=== PATIENT | female | born 1980 | race Caucasian/White ===

== ENCOUNTER 2016-10-06 10:23 | Outpatient (CLI) | payer BC ==
[~2016-10-06] VITALS: Ht 170.2 cm; Wt 93.6 kg
[2016-10-06 10:40] VITALS: BP 115/68
[2016-10-06] MEDS ORDERED: ESCI20TA10 PO (11:03)
[2016-10-06] MEDS ORDERED: PNV1TAB.5 PO (11:04)
[2016-10-06] MEDS ORDERED: SENN1TAB7 PO (11:04)
== END 2016-10-06 11:48 | disposition home or self-care (01) ==
LOC: LDOP 10:23
PROVIDERS: ATTEND Obstetrics & Gynecology
DX: O09.523 Supervision of elderly multigravida, third trimester (principal); O42.92 Full-term premature rupture of membranes, unspecified as to length of time between rupture and onset of labor; O99.343 Other mental disorders complicating pregnancy, third trimester; O99.513 Diseases of the respiratory system complicating pregnancy, third trimester; O46.93 Antepartum hemorrhage, unspecified, third trimester; F32.9 Major depressive disorder, single episode, unspecified; J45.909 Unspecified asthma, uncomplicated; Z3A.38 38 weeks gestation of pregnancy
CPT/HCPCS: 59025; 81001; 87086; 89060; 99201; G0463; Q0114

== ENCOUNTER 2016-10-13 07:11 | Inpatient (IN) | payer BC ==
[~2016-10-13] VITALS: Ht 170.2 cm; Wt 94.5 kg
[~2016-10-13 07:11] MED LIST: ESCI20TA10 PO; PNV1TAB.5 PO; SENN1TAB7 PO
[2016-10-13] MEDS ORDERED: OXYTOCIN 30U/ 0.9% NaCL 500ML 500 ML IV SCH (07:14)
[2016-10-13] MEDS ORDERED: LACTATED RINGERS 1,000 ML IV SCH ×2 (07:14→07:20)
[2016-10-13] MEDS ORDERED: METOCLOPRAMIDE 5 MG/ML, 2ML ONE ×2 (07:21→09:44)
[2016-10-13] MEDS ORDERED: SODIUM CITRATE/CITRIC ACID 30 ML UDC ONE ×2 (07:21→09:47)
[2016-10-13] MEDS ORDERED: OXYTOCIN 30U/ 0.9% NaCL 500ML 500 ML ONE (07:21)
[2016-10-13] MEDS ORDERED: NEWBORN KIT ONE (07:21)
[2016-10-13] MEDS ORDERED: SODIUM CITRATE/CITRIC ACID 30 ML UDC PO ONE (07:30)
[2016-10-13] MEDS ORDERED: LACTATED RINGERS 1,000 ML IVBOLUS ONE (07:30)
[2016-10-13] MEDS ORDERED: METOCLOPRAMIDE 5 MG/ML, 2ML IV ONE (07:30)
[2016-10-13 08:00] VITALS: BP 114/74
[2016-10-13] MEDS ORDERED: PLEASE ENTER HEIGHT AND WEIGHT MC SCH (08:00)
[2016-10-13] MEDS ORDERED: MIDAZOLAM 1 MG/ML, 2ML IV PRN (09:00)
[2016-10-13] MEDS ORDERED: ALBUTEROL SULFATE 2.5 MG/3 ML NPPB PRN (09:00)
[2016-10-13] MEDS ORDERED: PROMETHAZINE 25 MG/ML, 1ML IV PRN (09:00)
[2016-10-13] MEDS ORDERED: FENTANYL PF 100 MCG/2ML IV PRN (09:00)
[2016-10-13] MEDS ORDERED: HYDROcodone/APAP 7.5-325MG/15ML UDC PO PRN (09:00)
[2016-10-13] MEDS ORDERED: HYDROmorphone 1 MG/ML, 1ML IV PRN (09:00)
[2016-10-13] MEDS ORDERED: OXYcodone 5 MG/5 ML ORAL.SOL UDC PO PRN (09:00)
[2016-10-13] MEDS ORDERED: EPHEDRINE 50 MG/ML, 1ML IVPush PRN (09:00)
[2016-10-13] MEDS ORDERED: MEPERIDINE/PF 25MG/0.5ML IVPush PRN (09:00)
[2016-10-13] MEDS ORDERED: ONDANSETRON 2MG/ML, 2ML IVPush PRN (09:00)
[2016-10-13] MEDS ORDERED: hydrALAzine 20 MG/ML, 1ML IV PRN (09:00)
[2016-10-13] MEDS ORDERED: LABETALOL 5MG/ML, 20ML IV PRN (09:00)
[2016-10-13] MEDS ORDERED: MIDAZOLAM 1 MG/ML, 2ML ONE (09:06)
[2016-10-13] MEDS ORDERED: FENTANYL PF 100 MCG/2ML ONE (09:06)
[2016-10-13] MEDS: OXYTOCIN 30U/ 0.9% NaCL 500ML 500 ML IV SCH ×2 (09:43→19:43)
[2016-10-13] MEDS: LACTATED RINGERS 1,000 ML IV SCH ×4 (09:43→19:43)
[2016-10-13] MEDS ORDERED: CEFAZOLIN 1,000 MG ONE (09:44)
[2016-10-13] MEDS ORDERED: KETOROLAC 30 MG/1 ML ONE (09:44)
[2016-10-13] MEDS ORDERED: DEXAMETHASONE 4 MG/ML, 1ML ONE (09:44)
[2016-10-13] MEDS ORDERED: ONDANSETRON 2MG/ML, 2ML ONE (09:44)
[2016-10-13] MEDS ORDERED: MISOPROSTOL 200 MCG TABLET PR PRN (10:00)
[2016-10-13] MEDS: KETOROLAC 30 MG/1 ML IV SCH ×3 (10:00→22:47)
[2016-10-13] MEDS ORDERED: CARBOPROST TROMETHAMINE 250 MCG/ML, 1ML IM PRN (10:00)
[2016-10-13] MEDS ORDERED: METOCLOPRAMIDE 5 MG/ML, 2ML IV PRN (10:00)
[2016-10-13] MEDS ORDERED: ACETAMINOPHEN 325 MG TABLET PO PRN (10:00)
[2016-10-13] MEDS ORDERED: morphine SULFATE 10 MG/ML, 1ML IVPush PRN (10:00)
[2016-10-13] MEDS ORDERED: ONDANSETRON 2MG/ML, 2ML IV PRN (10:00)
[2016-10-13] MEDS ORDERED: METHYLERGONOVINE 0.2 MG/ML IM PRN (10:00)
[2016-10-13] MEDS ORDERED: OXYcodone/APAP 5/325MG TABLET ONE ×2 (11:57→12:13)
[2016-10-13] MEDS: OXYcodone/APAP 5/325MG TABLET PO PRN ×3 (11:59→20:33)
[2016-10-13 13:00] VITALS: BP 121/79
[2016-10-13] MEDS: morphine SULFATE 10 MG/ML, 1ML IVPush PRN ×2 (14:19→14:52)
[2016-10-13] MEDS: OXYcodone IR 5MG TABLET PO PRN (16:17)
[2016-10-13 16:26] VITALS: BP 121/71
[2016-10-13 18:24] LABS: LARGE PLATELETS 2+
[2016-10-13 20:40] VITALS: BP 109/69
[2016-10-14] MEDS: OXYcodone/APAP 5/325MG TABLET PO PRN (00:54)
[2016-10-14 01:00] VITALS: BP 103/61
[2016-10-14] MEDS: LACTATED RINGERS 1,000 ML IV SCH ×5 (01:43→17:43)
[2016-10-14] MEDS: KETOROLAC 30 MG/1 ML IV SCH ×2 (04:37→10:29)
[2016-10-14 04:42] VITALS: BP 102/65
[2016-10-14] MEDS: OXYTOCIN 30U/ 0.9% NaCL 500ML 500 ML IV SCH ×2 (05:43→15:43)
[2016-10-14] MEDS: OXYcodone IR 5MG TABLET PO PRN ×4 (07:36→20:40)
[2016-10-14 08:00] VITALS: BP 106/64
[2016-10-14] MEDS ORDERED: DOCUSATE 100 MG CAPSULE PO PRN (08:30)
[2016-10-14] MEDS: SENNA/DOCUSATE TABLET PO PRN ×2 (08:54→20:40)
[2016-10-14] MEDS: PRENATAL VIT/IRON/FA 1 EACH TABLET PO SCH (08:54)
[2016-10-14] MEDS: LEXAPRO 20 MG PO SCH (08:54)
[2016-10-14] MEDS: IBUPROFEN 600 MG TABLET PO PRN ×2 (16:25→22:34)
[2016-10-14 19:33] VITALS: BP 106/67
[2016-10-15] MEDS: OXYcodone IR 5MG TABLET PO PRN ×4 (00:38→14:10)
[2016-10-15] MEDS ORDERED: OXYC-302 PO (01:42)
[2016-10-15] MEDS: LACTATED RINGERS 1,000 ML IV SCH ×3 (01:43→09:43)
[2016-10-15] MEDS: OXYTOCIN 30U/ 0.9% NaCL 500ML 500 ML IV SCH (01:43)
[2016-10-15] MEDS ORDERED: IBUP-1222 PO (01:44)
[2016-10-15] MEDS ORDERED: DOCU-30 PO (01:45)
[2016-10-15] MEDS: IBUPROFEN 600 MG TABLET PO PRN ×2 (04:42→14:10)
[2016-10-15 08:01] VITALS: BP 110/70
[2016-10-15] MEDS: LEXAPRO 20 MG PO SCH (09:00)
[2016-10-15] MEDS: SENNA/DOCUSATE TABLET PO PRN (09:22)
[2016-10-15] MEDS: PRENATAL VIT/IRON/FA 1 EACH TABLET PO SCH (09:22)
[2016-10-15] MEDS ORDERED: IBUPROFEN 600 MG TABLET PO PRN (10:00)
== END 2016-10-15 14:20 | disposition home or self-care (01) | DRG 766 ==
LOC: LDIP 07:11 → 2NW 12:55
PROVIDERS: ADMIT Obstetrics & Gynecology; ATTEND Obstetrics & Gynecology
PROC: 10D00Z1 Extraction of Products of Conception, Low, Open Approach (ICD-10-PCS; principal; 2016-10-13)
DX: O34.211 Maternal care for low transverse scar from previous cesarean delivery (principal); O99.814 Abnormal glucose complicating childbirth; F41.9 Anxiety disorder, unspecified; F32.9 Major depressive disorder, single episode, unspecified; O99.344 Other mental disorders complicating childbirth; Z3A.39 39 weeks gestation of pregnancy; Z37.0 Single live birth; Z90.89 Acquired absence of other organs
CPT/HCPCS: 36415; 85025; 86850; 86900; J0690; J1100; J1885; J2250; J2405; J3010; J2270; J2590; J2765; J7120

== ENCOUNTER 2018-11-16 19:59 | Outpatient (CLI) | payer OTHER ==
[~2018-11-16] VITALS: Ht 170.2 cm; Wt 93.6 kg
== END 2018-11-16 20:45 | disposition home or self-care (01) ==
LOC: LDOP 19:59
PROVIDERS: ATTEND Obstetrics & Gynecology
DX: O36.8130 Decreased fetal movements, third trimester, not applicable or unspecified (principal); Z3A.35 35 weeks gestation of pregnancy
CPT/HCPCS: 59025; 76819; 99211; G0463

== ENCOUNTER 2018-11-29 11:04 | Outpatient (CLI) | payer OTHER ==
[~2018-11-29] VITALS: Ht 170.2 cm; Wt 95.4 kg
[2018-11-29 11:20] VITALS: BP 115/68
== END 2018-11-29 12:20 | disposition home or self-care (01) ==
LOC: LDOP 11:04
PROVIDERS: ATTEND Obstetrics & Gynecology
DX: O36.8130 Decreased fetal movements, third trimester, not applicable or unspecified (principal); Z3A.36 36 weeks gestation of pregnancy
CPT/HCPCS: 59025; 99211; G0463